=== PATIENT | female | born 1955 | race Caucasian/White ===

== ENCOUNTER 2017-07-07 15:19 | Emergency (ER) | payer BC, OTHER ==
--- NOTE | 2017-07-07 15:49 | ER Document Report ---
ED Medical Screen (RME) - General Chief Complaint: Dizziness Stated Complaint: DIZZINESS Time Seen by Provider: 07/07/17 15:47 Notes: Patient was referred from urgent care. Patient has had approximately 10 days of being dizzy and off balance. She also has had some vision disturbances. Patient denies any significant medical history or problems other than irritable bowel syndrome. She states she takes no daily medications. Patient denies any recent trauma or fevers. She has had no cough cold or congestion. She denies any ear pain. On brief neurological exam patient is noted to have a mild left pronator drift and some mild ataxia with finger to nose on the left side. TRAVEL OUTSIDE OF THE [place] IN LAST 30 DAYS: No - Related Data Allergies/Adverse Reactions: No Known Allergies Allergy (Verified 07/07/17 15:35) Past Medical History - Social History Frequency of alcohol use: Rare Drug Abuse: None - Past Medical History Cardiac Medical History: Denies: Hx Coronary Artery Disease, Hx Heart Attack, Hx Hypertension Pulmonary Medical History: Reports: Hx Pneumonia - 2006 Denies: Hx Asthma, Hx Bronchitis, Hx COPD Neurological Medical History: Denies: Hx Cerebrovascular Accident, Hx Seizures Renal/ Medical History: Denies: Hx Peritoneal Dialysis Musculoskeltal Medical History: Reports Hx Arthritis - hands Past Surgical History: Reports: Hx Tubal Ligation. Denies: Hx Hysterectomy, Hx Pacemaker - Immunizations Hx Diphtheria, Pertussis, Tetanus Vaccination: Yes - 4 yrs ago Physical Exam - Vital signs Vitals: Temp Pulse Resp BP Pulse Ox 97.6 F 67 16 146/104 H 99 07/07/17 15:35 07/07/17 15:35 07/07/17 15:35 07/07/17 15:35 07/07/17 15:35 Course - Vital Signs Vital signs: Temp Pulse Resp BP Pulse Ox 97.6 F 67 16 146/104 H 99 07/07/17 15:35 07/07/17 15:35 07/07/17 15:35 07/07/17 15:35 07/07/17 15:35
[2017-07-07 16:24] LABS: ABSOLUTE EOSINOPHILS # (AUTO) 0.1 10^3/uL (0.0-0.6); ABSOLUTE LYMPHOCYTES (AUTO) 1.9 10^3/uL (0.5-4.7); ABSOLUTE MONOCYTES (AUTO) 0.4 10^3/uL (0.1-1.4); ABSOLUTE NEUT (AUTO) 5.4 10^3/uL (1.7-8.2); BASOPHILS % (AUTO) 0.6 % (0-2); HEMATOCRIT 44.9 % (36.0-47.0); HEMOGLOBIN 15.2 g/dL (12.0-15.5); HGB HCT DIFFERENCE 0.7; LYMPHOCYTES % (AUTO) 24.1 % (13-45); MEAN CORPUSCULAR HGB CONC 33.7 g/dL (32.0-36.0); MEAN CORPUSCULAR VOLUME 95 fl (80-97); MONOCYTES % (AUTO) 4.8 % (3-13); RED BLOOD COUNT 4.73 10^6/uL (3.72-5.28); RED CELL DISTRIBUTION WIDTH 13.5 % (11.5-14.0); SEGMENTED NEUTROPHILS % (AUTO) 69.5 % (42-78); WHITE BLOOD COUNT 7.8 10^3/uL (4.0-10.5)
[2017-07-07 16:29] LABS: APPEARANCE,URINE CLEAR; BILIRUBIN,URINE NEGATIVE (NEGATIVE); GLUCOSE, URINE NEGATIVE (NEGATIVE); KETONES,URINE NEGATIVE (NEGATIVE); LEUKOCYTE ESTERASE,URINE NEGATIVE (NEGATIVE); NITRITE,URINE NEGATIVE (NEGATIVE); PROTEIN,URINE NEGATIVE (NEGATIVE); URINE SPECIFIC GRAVITY 1.004; UROBILINOGEN,URINE NEGATIVE mg/dL (<2.0)
--- NOTE | 2017-07-07 16:40 | RADIOLOGY REPORT (SQ) ---
EXAM DESCRIPTION: CT HEAD WITHOUT COMPLETED DATE/TIME: 07/07/2017 4:16 pm REASON FOR STUDY: dizzy/vision disturbance COMPARISON: CT brain 07/09/2011 TECHNIQUE: Axial images acquired through the brain without intravenous contrast. Images reviewed wi th bone, brain and subdural windows. Images stored on PACS. All CT scanners at this facility use dose modulation, iterative reconstruction, and/or weight based d osing when appropriate to reduce radiation dose to as low as reasonably achievable (ALARA). [facility]: Dose Right [facility]: CareDose [facility]: Dose Right [facility]: Teradose 4D [facility]: [employer] RADIATION DOSE: Up-to-date CT equipment and radiation dose reduction techniques were employed. CTDIv ol: 64.6 mGy. DLP: 1163 mGy-cm. mGy. LIMITATIONS: None. FINDINGS: VENTRICLES: Normal size and contour. CEREBRUM: No masses. No hemorrhage. No midline shift. No evidence for acute infarction. Normal gra y/white matter differentiation. No areas of low density in the white matter. CEREBELLUM: No masses. No hemorrhage. No alteration of density. No evidence for acute infarction. EXTRAAXIAL SPACES: No fluid collections. No masses. ORBITS AND GLOBE: No intra- or extraconal masses. Normal contour of globe without masses. CALVARIUM: No fracture. PARANASAL SINUSES: No fluid or mucosal thickening. SOFT TISSUES: No mass or hematoma. OTHER: No other significant finding. IMPRESSION: NORMAL BRAIN CT WITHOUT CONTRAST. COMMENT: Quality ID # [id number]: Final reports with documentation of one or more dose reduction techniques (e.g., Automated exposure control, adjustment of the mA and/or kV according to patient size, use of iterative reconstruction technique) TECHNICAL DOCUMENTATION: JOB ID: [id number]- All Rights Reserved
[2017-07-07 16:41] LABS: ALANINE AMINOTRANSFERASE 23 U/L (9-52); ALBUMIN 4.4 g/dL (3.5-5.0); ALKALINE PHOSPHATASE 78 U/L (38-126); ANION GAP 12 (5-19); ASPARTATE AMINO TRANSFERASE 26 U/L (14-36); BILIRUBIN,DIRECT 0.4 mg/dL (0.0-0.4); BILIRUBIN,TOTAL 0.8 mg/dL (0.2-1.3); BLOOD UREA NITROGEN 11 mg/dL (7-20); CALCIUM 9.5 mg/dL (8.4-10.2); CARBON DIOXIDE 25 mmol/L (22-30); CHLORIDE 103 mmol/L (98-107); GLUCOSE 101 mg/dL (75-110); POTASSIUM 3.8 mmol/L (3.6-5.0); SODIUM 140.1 mmol/L (137-145)
[2017-07-07] MEDS ORDERED: MECLIZINE HCL 25 MG TABLET PO ONE (18:05)
--- NOTE | 2017-07-07 18:11 | ER Document Report ---
ED Neuro Symptoms/Deficit - General Mode of Arrival: Ambulatory Information source: Patient TRAVEL OUTSIDE OF THE [place] IN LAST 30 DAYS: No - HPI Patient complains to provider of: Vision Changes - dizziness Onset: Other - x10 days Symptoms are: Worse/persistent Duration: Continues in ED Severity: None Was STROKE ALERT Called: No <LAURA KOLB - Last Filed: 07/07/17 19:05> <SANDRINE SCHWARTZ - Last Filed: 07/07/17 21:21> - General Chief Complaint: Dizziness Stated Complaint: DIZZINESS Time Seen by Provider: 07/07/17 15:47 Notes: Patient is a 61 year old female that presents to the emergency department today with complaints of dizziness x10 days. Patient states she has noticed that her dizziness seems to be the worst in the morning upon awakening. Patient states she has had to call out of work due to this dizziness causing severe nausea. In triage patient was found to (LAURA KOLB) - Related Data Allergies/Adverse Reactions: No Known Allergies Allergy (Verified 07/07/17 15:35) Past Medical History - General Information source: Patient - Social History Smoking Status: Current Every Day Smoker Cigarette use (# per day): Yes Frequency of alcohol use: Rare Drug Abuse: None Lives with: Family Family History: Reviewed & Not Pertinent Patient has suicidal ideation: No Patient has homicidal ideation: No Pulmonary Medical History: Reports: Hx Pneumonia - 2007 Musculoskeltal Medical History: Reports Hx Arthritis - hands Past Surgical History: Reports: Hx Tubal Ligation - Immunizations Hx Diphtheria, Pertussis, Tetanus Vaccination: Yes - 4 yrs ago Hx Pneumococcal Vaccination: 11/08/00 <LAURA KOLB - Last Filed: 07/07/17 19:05> Review of Systems - Review of Systems Constitutional: No symptoms reported EENT: No symptoms reported Cardiovascular: See HPI, Dizziness, Lightheaded Respiratory: No symptoms reported Gastrointestinal: No symptoms reported Genitourinary: No symptoms reported Female Genitourinary: No symptoms reported Musculoskeletal: No symptoms reported Skin: No symptoms reported Hematologic/Lymphatic: No symptoms reported Neurological/Psychological: denies: Weakness, Headaches, Numbness, Tingling -: Yes All other systems reviewed and negative <LAURA KOLB - Last Filed: 07/07/17 19:05> Physical Exam <LAURA KOLB - Last Filed: 07/07/17 19:05> <SANDRINE SCHWARTZ - Last Filed: 07/07/17 21:21> - Vital signs Vitals: Temp Pulse Resp BP Pulse Ox 97.6 F 67 16 146/104 H 99 07/07/17 15:35 07/07/17 15:35 07/07/17 15:35 07/07/17 15:35 07/07/17 15:35 - Notes Notes: Physical Exam: General: Alert, appears well. HEENT: Normocephalic. Atraumatic. PERRL. Extraocular movements intact. Oropharynx clear. Neck: Supple. Non-tender. Respiratory: No respiratory distress. Clear and equal breath sounds bilaterally. Cardiovascular: Regular rate and rhythm. Abdominal: Normal Inspection. Non-tender. No distension. Normal Bowel Sounds. Back: Non-tender. No deformity or step off. Extremities: Moves all four extremities. Upper extremities: Normal inspection. Normal ROM. Lower extremities: Normal inspection. No edema. Normal ROM. Neurological: 5/5 all source analyst strength bilaterally. When performing the [id number] test left finger misses nose slightly laterally which is consistent with testing done in triage. Normal cognition. AAOx4. Normal speech. Psychological: Normal affect. Normal Mood. Skin: Warm. Dry. Normal color. (LAURA KOLB) Course - Laboratory Result Diagrams: 07/07/17 16:09 07/07/17 16:09 <LAURA KOLB - Last Filed: 07/07/17 19:05> - Laboratory Result Diagrams: 07/07/17 16:09 07/07/17 16:09 - Diagnostic Test Radiology reviewed: Image reviewed, Reports reviewed - CT scan of the brain and MRI of the brain were unremarkable. - EKG Interpretation by Ct EKG shows normal: Sinus rhythm, [place], QRS Complexes, ST-T Waves. abnormal: Intervals - Borderline prolonged QT interval [place]/QRS: Left axis deviation P Waves: NEFTALI, LAE When compared to previous EKG there are: No significant change - Compared to a 2011 EKG <SANDRINE SCHWARTZ - Last Filed: 07/07/17 21:21> - Re-evaluation Re-evalutation: 07/07/17 21:14 The patient does feel better after the meclizine. She is able to stand up without being off balance or leaning. She is able to get up quickly without the symptoms being provoked. She is still unable to touch her left index fingertip to the tip of her nose with her eyes closed. This deficit is probably a chronic issue unrelated to the symptoms today. CT scan done earlier was normal and an MRI done because of this limb ataxia is also normal. (SANDRINE SCHWARTZ) - Vital Signs Vital signs: Temp Pulse Resp BP Pulse Ox 97.6 F 70 18 126/86 H 99 07/07/17 15:35 07/07/17 17:38 07/07/17 17:38 07/07/17 20:02 07/07/17 17:38 Discharge <LAURA KOLB - Last Filed: 07/07/17 19:05> <SANDRINE SCHWARTZ - Last Filed: 07/07/17 21:21> - Discharge Clinical Impression: Vertigo Condition: Stable Disposition: HOME, SELF-CARE Additional Instructions: Vertigo You have PROBABLY been experiencing vertigo -- a whirling dizziness which may be accompanied by nausea and vomiting or staggering. Vertigo is often caused by an irritation of the inner ear, in which case it is called labyrinthitis. It can also be a symptom of a degenerating inner ear, nerve damage, or brain injury. Your physician has evaluated you to determine whether any further testing is necessary. Vertigo is often treated with dramamine or meclizine. These medications are helpful, but stronger medication may be needed if you are vomiting. Rest in bed. You should not drive or operate machinery until completely better. It may take one to three weeks for recovery. If there are new symptoms, such as decreased hearing or vision, severe headache, weakness or faintness, or confusion, call the physician. TAKE THE MEDICATION PRESCRIBED FOR THE DIZZY SENSATION. GET PLENTY OF REST. DRINK PLENTY OF FLUIDS. FOLLOW UP WITH A LOCAL MEDICAL DOCTOR OR ENT DOCTOR IF NOT IMPROVING. RETURN TO THE EMERGENCY ROOM IF ANY NEW OR WORSENING SYMPTOMS. Prescriptions: Meclizine HCl [Antivert 25 mg Tablet] 25 mg PO TID PRN #30 tablet PRN Reason: Forms: Return to Work Scribe Attestation: 07/07/17 21:20 I personally performed the services described in the documentation, reviewed and edited the documentation which was dictated to the scribe in my presence, and it accurately records my words and actions. (SANDRINE SCHWARTZ) Scribe Documentation - Scribe Written by Cristin:: Cristin Palacios, Francesca acting as scribe for :: Jerry <LAURA KOLB - Last Filed: 07/07/17 19:05>
--- NOTE | 2017-07-07 20:45 | RADIOLOGY REPORT (SQ) ---
EXAM DESCRIPTION: MRI HEAD WITHOUT COMPLETED DATE/TIME: 07/07/2017 7:43 pm REASON FOR STUDY: dizzy x 1 week, LUE atxia COMPARISON: None. TECHNIQUE: Multiplanar imaging includes non-contrasted T1, T2, FLAIR, and diffusion with ADC map seq uences. Images stored on PACS. LIMITATIONS: None. FINDINGS: ANATOMY: No anomalies. Normal vascular flow voids. Pituitary fossa normal. CSF SPACES: Normal in size and contour. No hemorrhage. CEREBRUM: Sulci and gyri normal in size and contour. Normal white matter signal on FLAIR imaging. No evidence of hemorrhage, mass, or extraaxial fluid collection. POSTERIOR FOSSA: No signal alteration. No hemorrhage. No edema, masses or mass effect. Internal nishant tory canals, cerebello-pontine angles, mastoids normal. DIFFUSION IMAGING: Negative for acute or sub-acute infarction. ORBITS: No masses. Globes normal. PARANASAL SINUSES: No fluid levels. Mucosa normal. OTHER: No other significant finding. IMPRESSION: Negative for acute or sub-acute infarction. Age-appropriate exam. EVIDENCE OF ACUTE STROKE: NO. TECHNICAL DOCUMENTATION: JOB ID: [id number]- All Rights Reserved
[2017-07-07 21:27] VITALS: BP 137/76
--- NOTE | 2017-07-07 23:51 | EKG REPORT ---
SEVERITY:- ABNORMAL ECG - SINUS RHYTHM GALEN, CONSIDER BIATRIAL ABNORMALITIES LEFT AXIS DEVIATION BORDERLINE PROLONGED QT INTERVAL : Confirmed by: Shanna Hernandez 07-Jul-2017 23:50:22
== END 2017-07-07 21:36 | disposition home or self-care (01) ==
LOC: ER 15:19
DX: R42 Dizziness and giddiness (principal); F17.210 Nicotine dependence, cigarettes, uncomplicated; Z98.51 Tubal ligation status
CPT/HCPCS: 36415; 70450; 70551; 80053; 81001; 85025; 93005; 93010; 99284